=== PATIENT | female | born 1935 | race Caucasian/White ===

== ENCOUNTER 2019-06-29 10:46 | Inpatient (IN) | payer MEDICARE, OTHER ==
[~2019-06-29] VITALS: Ht 152.4 cm; Wt 54.4 kg
--- NOTE | 2019-06-29 10:56 | NUR ---
BIB CAREGIVER FOR C/O BEING MORE ALTERED THAN USUAL,"SHES NOT EATING AND NOT TAKING HER MEDS FOR 2 DAYS", AO x 1, TO ER BED 10, HOOKED TO MONITOR, CHANGED TO GOWN, PROVIDED W WARM BLANKET, AWAITING MD VICTORIA.
--- NOTE | 2019-06-29 10:58 | NUR ---
DR ROBLEDO AT BEDSIDE
[2019-06-29] MEDS ORDERED: LORAZEPAM INJ 2 MG/ML VIAL IV ONE (11:00)
[2019-06-29] MEDS ORDERED: IV NS 0.9% 1,000 ML BAG IV ONE (11:00)
[2019-06-29] MEDS ORDERED: LORAZEPAM INJ 2 MG/ML VIAL ONE (11:15)
[2019-06-29 11:20] LABS: BASOPHILS % (AUTO) 0.3 % (0.0-2.0); EOSINOPHILS % (AUTO) 0.8 % (0.0-6.0); HEMATOCRIT 34 % (33-45); HEMOGLOBIN 11.1 g/dL (11.5-14.8); LYMPHOCYTES # (AUTO) 1.1 /CMM (0.8-4.8); LYMPHOCYTES % (AUTO) 12.1 % (20.0-44.0); MEAN CORPUSCULAR HGB CONC 33 g/dl (31.0-36.0); MEAN CORPUSCULAR VOLUME 104 fL (82-100); MONOCYTES # (AUTO) 0.6 /CMM (0.1-1.30); MONOCYTES % (AUTO) 7.2 % (2.0-12.0); NEUTROPHILS # (AUTO) 7.1 /CMM (1.8-8.9); NEUTROPHILS % (AUTO) 79.6 % (43.0-81.0); PLATELET COUNT (AUTO) 201 /CMM (150-450); RED BLOOD CELL COUNT(AUTO) 3.23 MIL/uL (4.0-5.2); WHITE BLOOD COUNT (AUTO) 8.9 K/uL (4.3-11.0)
[2019-06-29] MEDS ORDERED: DOCU100C36 PO (11:26)
[2019-06-29] MEDS ORDERED: CLON1TAB12 PO (11:26)
[2019-06-29] MEDS ORDERED: SIMV10TA6 PO (11:26)
[2019-06-29] MEDS ORDERED: FOLI1TAB16 PO (11:26)
[2019-06-29] MEDS ORDERED: SEVE800T8 PO (11:26)
[2019-06-29] MEDS ORDERED: NITR100C11 PO (11:26)
[2019-06-29] MEDS ORDERED: POLY17PO4 PO (11:26)
[2019-06-29] MEDS ORDERED: LOPE-156 PO (11:26)
[2019-06-29] MEDS ORDERED: FERR325T23 PO (11:26)
[2019-06-29] MEDS ORDERED: BUPR300T52 PO (11:26)
[2019-06-29] MEDS ORDERED: OMEP20CA11 PO (11:26)
[2019-06-29] MEDS ORDERED: TYL2T PO (11:26)
[2019-06-29] MEDS ORDERED: DIVA500T2 PO (11:26)
[2019-06-29] MEDS ORDERED: SENN-18 PO (11:26)
[2019-06-29] MEDS ORDERED: LEVO50TA8 PO (11:26)
[2019-06-29] MEDS ORDERED: OLAN2.5T3 PO (11:26)
[2019-06-29 11:29] LABS: CALCIUM, SERUM 9.2 mg/dL (8.5-10.1); CARBON DIOXIDE 28 mmol/L (21-32); CHLORIDE 101 mmol/L (98-107); CREATININE 3.9 mg/dL (0.6-1.3); GLUCOSE 95 mg/dL (74-106); POTASSIUM 3.1 mmol/L (3.5-5.1); SODIUM SERUM 141 mmol/L (136-145); UREA NITROGEN, BLOOD 43 mg/dL (7-18)
--- NOTE | 2019-06-29 11:33 | NUR ---
CALLED FOR TELE BED, TURNED IN MOVE SHEET
[2019-06-29 11:46] LABS: ALANINE AMINOTRANSFERASE 15 U/L (12-78); ALBUMIN 2.7 g/dL (3.4-5.0); ALKALINE PHOSPHATASE 121 U/L (46-116); ASPARTATE AMINOTRANSFERASE 18 U/L (15-37); BILIRUBIN,DIRECT 0.2 mg/dL (0.0-0.2); BILIRUBIN,TOTAL 0.5 mg/dL (0.2-1.0); TOTAL PROTEIN, SERUM 7.5 g/dL (6.4-8.2)
[2019-06-29 11:50] LABS: BILIRUBIN,URINE Negative (NEGATIVE); BLOOD, URINE Moderate Ery/uL (NEGATIVE); COLOR,URINE Yellow (YELLOW); KETONES,URINE Trace (NEGATIVE); LEUKOCYTE ESTERASE ,URINE Large (NEGATIVE); NITRITE, URINE Negative (NEGATIVE); PH,URINE 7.5 (5.0-8.0); PROTEIN,URINE 100 mg/dl (NEGATIVE); UGLUCOSE Negative (NEGATIVE); UROBILINOGEN,URINE 0.2 EU/dL (0.2)
[2019-06-29 11:52] LABS: APPEARANCE,URINE CLOUDY (CLEAR)
[2019-06-29 11:53] LABS: BACTERIA,URINE 1+ /HPF (None Seen); SQUAMOUS EPITHELIAL CELL,UR Moderate /HPF (None Seen); WBC,URINE 21-50 /HPF (0-3)
--- NOTE | 2019-06-29 12:02 | NUR ---
TELE BED 323-2
--- NOTE | 2019-06-29 12:17 | NUR ---
REPORT GIVEN TO COMFORT MCMILLAN OF TELE UNIT
--- NOTE | 2019-06-29 12:20 | NUR ---
RN NOTES RECEIVED REPORT FROM DEYANIRA CAMPBELL. WAITING FOR PATIENT TO ARRIVE UNIT
--- NOTE | 2019-06-29 12:45 | NUR ---
PAGED ANDMARY ALICEN
[2019-06-29] MEDS ORDERED: CEFTRIAXONE 1GM BAG (ER ONLY) 1 GM/50 ML PIGGYBACK IV ONE (13:00)
[2019-06-29] MEDS ORDERED: CEFTRIAXONE 1GM BAG (ER ONLY) 50 ML IV ONE (13:18)
[2019-06-29 13:20] VITALS: BP 140/63
--- NOTE | 2019-06-29 13:20 | NUR ---
TOOLROOM MACHINIST NOTES PATIENT CAME IN VIA GURNEY. ON ROOM AIR, SO DIFF BREATHING. ON TELE MONITOR, SR. LAST HD 06/27. HAS RIGHT HIP AND RIGHT SHOULDER BRUISE. PATIENT STATED SHE HAD A FALL ESTIMATION A MONTH AGO. HAS RIGHT FA#20 NS 100ML/HR. LEFT UA FISTULA, REDNESS NOTED. TOOK PICTURES OF FISTULA AND BRUISES. NO COMPLAINS OF ANY PAIN NOR SOB. BED LOCKED AND IN LOWEST POSITION. CALL LIGHT WITHIN REACH. BELONGINGS LIST CHECKED. WILL CONT TO MONITOR
[2019-06-29] MEDS ORDERED: POLYETHYLENE GLYCOL 3350 17 GM POWD.PACK PO PRN (14:00)
[2019-06-29] MEDS ORDERED: ACETAMINOPHEN 325 MG TABLET PO PRN (14:00)
[2019-06-29] MEDS ORDERED: MAG HYDROX/AL HYDROX/SIMETH 30 ML UDC PO PRN (14:00)
[2019-06-29] MEDS ORDERED: Z GUARD REMEDY 2 OZ OINT TP PRN (14:00)
[2019-06-29] MEDS ORDERED: MAGNESIUM HYDROXIDE 30 ML UDC PO PRN (14:00)
[2019-06-29] MEDS ORDERED: ONDANSETRON HCL/PF 4 MG/2 ML VIAL IVP PRN (14:00)
[2019-06-29] MEDS ORDERED: HYDROCODONE/APAP 5/325MG 1 EACH TABLET PO PRN (14:00)
[2019-06-29] MEDS ORDERED: IV NS 0.9% 1,000 ML IV SCH (14:00)
[2019-06-29] MEDS ORDERED: SENNOSIDES 8.6 MG TABLET PO PRN (14:00)
[2019-06-29] MEDS ORDERED: LOPERAMIDE HCL (2 MG CAP) 2 MG CAPSULE PO PRN (14:30)
[2019-06-29 16:00] VITALS: BP 156/63
[2019-06-29] MEDS: DIVALPROEX SODIUM 500 MG TABLET.DR PO SCH (17:07)
[2019-06-29] MEDS: DOCUSATE SODIUM 100 MG CAPSULE PO SCH (17:07)
[2019-06-29] MEDS: SEVELAMER CARBONATE 800 MG TABLET PO SCH (17:07)
--- NOTE | 2019-06-29 17:38 | NUR ---
RN NOTES DR FARLEY AT BEDSIDE, FISTULA WAS NOTED WITH REDNESS. PATIENT AWARE ABOUT THE CONDITION. PATIENT ALERT AND ORIENTED X4. Addendum: 06/29/19 at 1740 by TERESA BRENNER RN RENAL DIET ORDERED PER
--- NOTE | 2019-06-29 19:03 | NUR ---
RN CLOSING NOTES PATIENT AWAKE, VERY ALERT AND AGITATED. ON TELE, SR. WOUND DOCUMENTED. RIGHT FA #20 NS RUNNING AT 100ML/HR. ON ROOM AIR. DIET CHANGED TO RENAL FROM NPO. WILL ENDORSE TO NOC SHIFT FOR RED
[2019-06-29 20:00] VITALS: BP 140/65
--- NOTE | 2019-06-29 20:00 | NUR ---
CHILDHOOD TEACHER NURSE RECEIVED PTS IN BED AWAKE ALERT AND RESPONSIVE ABLE TO MAKE NEEDS KNOWN , ON TELE SR ON THE MONITOR SATING 96%R/A ,NO SOB NO DISTRESS NOTED,PTS ON LEFT UA AV FISTULA FOR HD ACCESS , WITH BRUIT AND THRILL ,RIGHT FA G#20 INTACT AND PATENT WITH IVF NS AT 100 CC/HR INFUSING WELL . V/S STABLE AFEBRILE , ALL NEEDS ATTENDED TOO CALL LIGHT WITHIN REACH , KEPT PTS CLEAN DRY AND COMFORTABLE.WILL CONTINUE TO MONITOR PTS.
[2019-06-29] MEDS: clonazePAM 1 MG TABLET PO SCH (21:07)
[2019-06-29] MEDS: SIMVASTATIN 10 MG TABLET PO SCH (21:10)
[2019-06-30] VITALS: BP 115/50
[2019-06-30 04:00] VITALS: BP 115/50
--- NOTE | 2019-06-30 06:45 | NUR ---
teleprinter notes pts in bed awake alert and responsive , on r/a no sob no distress noted , no cinthia noted at this time .for hd today , will endorse to rn day shift for continuity of care.
[2019-06-30 07:18] LABS: BASOPHILS % (AUTO) 0.3 % (0.0-2.0); EOSINOPHILS % (AUTO) 1.3 % (0.0-6.0); HEMATOCRIT 29 % (33-45); HEMOGLOBIN 9.8 g/dL (11.5-14.8); LYMPHOCYTES # (AUTO) 1.2 /CMM (0.8-4.8); MEAN CORPUSCULAR HGB CONC 34 g/dl (31.0-36.0); MEAN CORPUSCULAR VOLUME 103 fL (82-100); MONOCYTES # (AUTO) 0.6 /CMM (0.1-1.30); NEUTROPHILS # (AUTO) 7.4 /CMM (1.8-8.9); NEUTROPHILS % (AUTO) 79.4 % (43.0-81.0); PLATELET COUNT (AUTO) 202 /CMM (150-450); RED BLOOD CELL COUNT(AUTO) 2.83 MIL/uL (4.0-5.2); WHITE BLOOD COUNT (AUTO) 9.3 K/uL (4.3-11.0)
--- NOTE | 2019-06-30 07:20 | NUR ---
EXHIBITION CARVER OPENING NOTES RECEIVED PATIENT RESTING COMFORTABLY IN BED. DOES NOT SHOW ANY S/SX OF DISTRESS OR SOB ON RA. RFA 20G SALINE LOCK, SHE IS ON A RENAL STANDARD DIET. SAFETY MEASURES HAVE BEEN IMPLEMENTED, SIDE RAILS UP X2, BED IN LOWEST AND LOCKED POSITION, CALL LIGHT WITHIN REACH, WILL CONTINUE TO MONITOR FOR ANY CHANGES.
[2019-06-30 07:45] LABS: CALCIUM, SERUM 8.5 mg/dL (8.5-10.1); CARBON DIOXIDE 26 mmol/L (21-32); CHLORIDE 107 mmol/L (98-107); CREATININE 4.7 mg/dL (0.6-1.3); GLUCOSE 90 mg/dL (74-106); PHOSPHORUS 3.4 mg/dL (2.5-4.9); SODIUM SERUM 145 mmol/L (136-145); UREA NITROGEN, BLOOD 53 mg/dL (7-18)
[2019-06-30 07:48] LABS: CHOLESTEROL 194 mg/dL (<200); HDL CHOLESTEROL 39 mg/dL (40-60); LDL 113 mg/dL (0-99); TRIGLYCERIDES 182 mg/dL (30-150)
[2019-06-30 08:00] VITALS: BP 144/63
[2019-06-30] MEDS: LEVOTHYROXINE SODIUM 25 MCG TABLET PO SCH (08:08)
[2019-06-30] MEDS: PANTOPRAZOLE 40 MG TABLET.DR PO SCH (08:08)
[2019-06-30] MEDS: SEVELAMER CARBONATE 800 MG TABLET PO SCH ×3 (08:58→17:01)
[2019-06-30] MEDS: DIVALPROEX SODIUM 500 MG TABLET.DR PO SCH ×2 (08:59→17:01)
[2019-06-30] MEDS: DOCUSATE SODIUM 100 MG CAPSULE PO SCH ×2 (08:59→17:01)
[2019-06-30] MEDS: BUPROPION XL 150 MG TAB.ER.24 PO SCH (08:59)
[2019-06-30] MEDS: OLANZAPINE 2.5 MG TABLET PO SCH (09:00)
[2019-06-30] MEDS: FERROUS SULFATE (325 MG) 325 MG/TAB TABLET PO SCH (09:00)
[2019-06-30] MEDS: FOLIC ACID 1 MG TABLET PO SCH (09:00)
[2019-06-30] MEDS: CEFTRIAXONE 1 G in IV D5W 50 ML IV SCH (14:52)
--- NOTE | 2019-06-30 14:55 | NUR ---
RN NOTES PATIENT IS POST-HEMODIALYSIS, 1.3L OF FLUID REMOVED. VITALS SIGNS ARE BP: 129/55, HR: 82, RR: 16, AND TEMP: 98.5 F. PT HAS TOLERATED HD WELL, RESTING IN BED. 13:00 DOSE OF CEFTRIAXONE WAS GIVEN 14:50 BECAUSE OF HD. IV SITE ON RFA HAS BEEN REMOVED BECAUSE IT BECAME INFILTRATED WHEN TRYING TO FLUSH THE LINE. PT NOW HAS A 22G SALINE LOCK ON RIGHT WRIST. WILL CONTINUE TO MONITOR. BED IS IN LOWEST AND LOCKED POSITION, SIDE RAILS UP X2, CALL LIGHT WITHIN REACH. WILL CONTINUE TO MONITOR FOR ANY CHANGES.
--- NOTE | 2019-06-30 19:31 | NUR ---
RN CLOSING NOTES PATIENT IS RESTING COMFORTABLY IN BED, DOES IN SHOW ANY SIGNS OF DISTRESS. PT HAS A 22 G ON THE RIGHT WRIST, PATENT AND INTACT, WITH A LINDA AV SHUNT. PATIENT IS ON RA AND DOES NOT SHOW SIGNS OF RESPIRATORY DISTRESS OR SOB. SAFETY MEASURES HAVE BEEN IMPLEMENTED, SIDE RAILS UP X2, CALL LIGHT WITHIN REACH. PATIENT HAS BEEN ENDORSED TO NIGHTSHIFT NURSE
--- NOTE | 2019-06-30 19:56 | NUR ---
MS MCMILLAN OPENING NOTES: RECEIVED PT ON ROOM AIR AND IS TOLERATING WELL. PT IS A/OX4 BUT HAS SOME UNCLEAR SPEECH. PT HAS R WRIST #22G AND IS PATENT AND INTACT. CURRENTLY H/L. NO SOB NOTED. NO S/S OF DISTRESS. BED ALARM ACTIVATED FOR SAFETY MEASURES. BED KEPT IN LOW, LOCKED POSITION, AND SIDE RAILS X 2UP. WILL CONTINUE TO MONITOR PT. Addendum: 06/30/19 at 1957 by GLADIS WATSON RN NOTED PT TO BE FORGETFUL. WILL REORIENT PRN. PT ALSO HAS L UPPER ARM FISUTAL AND IS KEPT CLEAN AND DRY.
[2019-06-30 20:26] VITALS: BP 136/62
[2019-06-30] MEDS: clonazePAM 1 MG TABLET PO SCH (21:00)
[2019-06-30] MEDS: SIMVASTATIN 10 MG TABLET PO SCH (21:00)
[2019-07-01 04:00] VITALS: BP 121/63
[2019-07-01 07:23] LABS: BASOPHILS % (AUTO) 0.2 % (0.0-2.0); EOSINOPHILS % (AUTO) 1.2 % (0.0-6.0); HEMATOCRIT 29 % (33-45); HEMOGLOBIN 9.9 g/dL (11.5-14.8); LYMPHOCYTES # (AUTO) 1.2 /CMM (0.8-4.8); LYMPHOCYTES % (AUTO) 14.5 % (20.0-44.0); MEAN CORPUSCULAR HGB CONC 34 g/dl (31.0-36.0); MEAN CORPUSCULAR VOLUME 103 fL (82-100); MONOCYTES # (AUTO) 0.4 /CMM (0.1-1.30); MONOCYTES % (AUTO) 5.4 % (2.0-12.0); NEUTROPHILS # (AUTO) 6.5 /CMM (1.8-8.9); NEUTROPHILS % (AUTO) 78.7 % (43.0-81.0); PLATELET COUNT (AUTO) 201 /CMM (150-450); RED BLOOD CELL COUNT(AUTO) 2.85 MIL/uL (4.0-5.2); WHITE BLOOD COUNT (AUTO) 8.3 K/uL (4.3-11.0)
[2019-07-01 07:38] LABS: ALANINE AMINOTRANSFERASE 10 U/L (12-78); ALBUMIN 2.3 g/dL (3.4-5.0); ALKALINE PHOSPHATASE 94 U/L (46-116); ASPARTATE AMINOTRANSFERASE 14 U/L (15-37); BILIRUBIN,TOTAL 0.2 mg/dL (0.2-1.0); CALCIUM, SERUM 8.5 mg/dL (8.5-10.1); CARBON DIOXIDE 29 mmol/L (21-32); CHLORIDE 103 mmol/L (98-107); CREATININE 4.3 mg/dL (0.6-1.3); GLUCOSE 89 mg/dL (74-106); PHOSPHORUS 3.3 mg/dL (2.5-4.9); POTASSIUM 3.1 mmol/L (3.5-5.1); SODIUM SERUM 142 mmol/L (136-145); TOTAL PROTEIN, SERUM 6.5 g/dL (6.4-8.2); UREA NITROGEN, BLOOD 41 mg/dL (7-18)
[2019-07-01 08:00] VITALS: BP 130/58
[2019-07-01] MEDS: DIVALPROEX SODIUM 500 MG TABLET.DR PO SCH ×2 (10:36→17:27)
[2019-07-01] MEDS: DOCUSATE SODIUM 100 MG CAPSULE PO SCH ×2 (10:36→17:28)
[2019-07-01] MEDS: OLANZAPINE 2.5 MG TABLET PO SCH (10:36)
[2019-07-01] MEDS: SEVELAMER CARBONATE 800 MG TABLET PO SCH ×3 (10:36→17:27)
[2019-07-01] MEDS: FOLIC ACID 1 MG TABLET PO SCH (10:37)
[2019-07-01] MEDS: FERROUS SULFATE (325 MG) 325 MG/TAB TABLET PO SCH (10:37)
[2019-07-01] MEDS: BUPROPION XL 150 MG TAB.ER.24 PO SCH (10:37)
[2019-07-01] MEDS: LEVOTHYROXINE SODIUM 25 MCG TABLET PO SCH (10:37)
[2019-07-01] MEDS: PANTOPRAZOLE 40 MG TABLET.DR PO SCH (10:37)
[2019-07-01] MEDS: CEFTRIAXONE 1 G in IV D5W 50 ML IV SCH (13:16)
[2019-07-01 13:26] LABS: GAMMA GLUTAMYL TRANSFERASE 7 U/L (5-85)
[2019-07-01 16:00] VITALS: BP 137/65
--- NOTE | 2019-07-01 19:30 | NUR ---
MS/RN OPENING NOTES PT RECEIVED AWAKE, WATCHING TV. PT IS A/OX2 (NAME AND PLACE). ON ROOM AIR, BREATHING EVEN AND UNLABORED. DENIES SOB AND PAIN AT THIS TIME. HOB ELEVATED. IV TO RIGHT WRIST PATENT AND INTACT. LINDA AV SHUNT WITH +BRUITT/THRILL. NO BLEEDING NOTED. BED IN LOW/LOCKED POSITION WITH CALL LIGHT IN REACH. BILAT. UPPER SIDE RAILS IN PLACE. WILL CONTINUE TO MONITOR
[2019-07-01 19:50] VITALS: BP 138/51
[2019-07-01 19:56] VITALS: BP 138/51
[2019-07-01] MEDS: SIMVASTATIN 10 MG TABLET PO SCH (21:19)
[2019-07-01] MEDS: clonazePAM 1 MG TABLET PO SCH (21:19)
--- NOTE | 2019-07-02 01:53 | NUR ---
MS/RN NOTES PT PULLED OUT IV. INSERTED NEW IV TO RFA #22, GOOD BLOOD RETURN NOTED AND FLUSHES WELL. ENCOURAGED PT NOT TO PULL OUT NEW IV, VERBALIZED UNDERSTANDING.
[2019-07-02 04:00] VITALS: BP 130/60
[2019-07-02 04:45] VITALS: BP 130/60
--- NOTE | 2019-07-02 06:35 | NUR ---
MS/RN CLOSING NOTES PT AWAKE WATCHING TV. REMAINS ON ROOM AIR, BREATHING EVEN AND UNLABORED. DENIES SOB AND PAIN AT THIS TIME. IV TO RFA PATENT AND INTACT. LINDA AV SHUNT WITH +BRUITT/THRILL. ANTICIPATING HEMODIALYSIS TODAY. NO SIGNIFICANT CHANGES OVERNIGHT. ALL NEEDS MET AND ANTICIPATED. TURNED/REPOSITIONED Q2H. HEELS OFFLOADED. HOB ELEVATED AND SIDE RAILS UPX3. BED IN LOW/LOCKED POSITION WITH CALL LIGHT IN REACH. ASPIRATION PRECAUTIONS IMPLEMENTED. ISOLATION PRECAUTIONS IMPLEMENTED. WILL ENDORSE TO DAY SHIFT RN RED.
[2019-07-02 07:13] LABS: BASOPHILS % (AUTO) 0.3 % (0.0-2.0); EOSINOPHILS % (AUTO) 1.4 % (0.0-6.0); HEMATOCRIT 28 % (33-45); HEMOGLOBIN 9.5 g/dL (11.5-14.8); LYMPHOCYTES # (AUTO) 1.1 /CMM (0.8-4.8); MEAN CORPUSCULAR HGB CONC 34 g/dl (31.0-36.0); MEAN CORPUSCULAR VOLUME 103 fL (82-100); MONOCYTES # (AUTO) 0.4 /CMM (0.1-1.30); MONOCYTES % (AUTO) 6.2 % (2.0-12.0); NEUTROPHILS # (AUTO) 5.2 /CMM (1.8-8.9); NEUTROPHILS % (AUTO) 76.1 % (43.0-81.0); PLATELET COUNT (AUTO) 207 /CMM (150-450); RED BLOOD CELL COUNT(AUTO) 2.72 MIL/uL (4.0-5.2); WHITE BLOOD COUNT (AUTO) 6.8 K/uL (4.3-11.0)
[2019-07-02 07:17] LABS: CALCIUM, SERUM 8.5 mg/dL (8.5-10.1); CARBON DIOXIDE 27 mmol/L (21-32); CHLORIDE 106 mmol/L (98-107); CREATININE 5.2 mg/dL (0.6-1.3); GLUCOSE 85 mg/dL (74-106); POTASSIUM 3.2 mmol/L (3.5-5.1); SODIUM SERUM 144 mmol/L (136-145); UREA NITROGEN, BLOOD 52 mg/dL (7-18)
--- NOTE | 2019-07-02 07:50 | NUR ---
m/s administrative specialist: md visit seen by dr. mccurdy with new orders. orders acknowledged. pt for hd tx today. md aware of labs. will continue to monitor.
[2019-07-02 08:23] VITALS: BP 116/60
[2019-07-02] MEDS ORDERED: FEE PK DOSING 1 MIN EA MC ONE ×2 (08:24→21:11)
[2019-07-02] MEDS: OLANZAPINE 2.5 MG TABLET PO SCH (08:41)
[2019-07-02] MEDS: SEVELAMER CARBONATE 800 MG TABLET PO SCH ×3 (08:41→17:37)
[2019-07-02] MEDS: LEVOTHYROXINE SODIUM 25 MCG TABLET PO SCH (08:41)
[2019-07-02] MEDS: PANTOPRAZOLE 40 MG TABLET.DR PO SCH (08:41)
[2019-07-02] MEDS: DOCUSATE SODIUM 100 MG CAPSULE PO SCH ×2 (08:41→17:37)
[2019-07-02] MEDS: FERROUS SULFATE (325 MG) 325 MG/TAB TABLET PO SCH (08:41)
[2019-07-02] MEDS: DIVALPROEX SODIUM 500 MG TABLET.DR PO SCH ×2 (08:41→17:37)
[2019-07-02] MEDS: BUPROPION XL 150 MG TAB.ER.24 PO SCH (08:41)
[2019-07-02] MEDS: FOLIC ACID 1 MG TABLET PO SCH (08:41)
--- NOTE | 2019-07-02 09:35 | NUR ---
m/s stewardess supervisor: notes hd tx started by hd nurse at this time. will continue to monitor.
[2019-07-02] MEDS ORDERED: GENTAMICIN 300 MG in IV D5W 100 ML IV ONE (10:00)
[2019-07-02] MEDS ORDERED: GENTAMICIN 100 MG in IV D5W 100 ML IV ONE (11:00)
--- NOTE | 2019-07-02 11:10 | NUR ---
m/s vineyard supervisor: md visit seen and examined by dr. garcia at this time.
[2019-07-02 12:00] VITALS: BP 110/50
--- NOTE | 2019-07-02 12:00 | NUR ---
m/s senior vice president and chief information officer: notes hd completed with 1000 ml removed, angela. well. vss. will continue to monitor.
--- NOTE | 2019-07-02 13:00 | NUR ---
m/s patient care representative: notes post 1 hour of hd tx without a/r noted. pt resting comfortable. reality orientation provided prn. will continue to monitor.
--- NOTE | 2019-07-02 15:00 | NUR ---
m/s international first officer: notes resting comfortable in bed with no distress noted. will monitor.
[2019-07-02 17:19] VITALS: BP 117/52
--- NOTE | 2019-07-02 18:30 | NUR ---
m/s bmet: notes pt still having dinner at this time with hob elevated. needs attended. instructed to call for assistance. no apparent distress noted. will continue to monitor.
--- NOTE | 2019-07-02 19:15 | NUR ---
m/s management associate: notes bedside report given to cordell (rn) for continuity of care. call light within reach.
[2019-07-02 20:00] VITALS: BP 118/70
--- NOTE | 2019-07-02 20:00 | NUR ---
MS/RN OPENING NOTES PT RECEIVED AWAKE, WATCHING TV. PT IS A/OX. ON ROOM AIR, BREATHING EVEN AND UNLABORED. DENIES SOB AND PAIN AT THIS TIME. HOB ELEVATED. IV TO RIGHT FOREARM PATENT AND INTACT. LINDA AV SHUNT WITH +BRUIT/THRILL. NO BLEEDING NOTED. BED IN LOW/LOCKED POSITION WITH CALL LIGHT IN REACH. UPPER SIDE RAILSX2 IN PLACE. WILL CONTINUE TO MONITOR PATIENT CLOSELY.
[2019-07-02] MEDS ORDERED: VANCOMYCIN 1 GM in IV D5W 250 ML IV ONE (21:30)
[2019-07-02] MEDS: clonazePAM 1 MG TABLET PO SCH ×2 (21:48→22:00)
[2019-07-02] MEDS: SIMVASTATIN 10 MG TABLET PO SCH ×2 (21:49→22:00)
--- NOTE | 2019-07-02 22:30 | NUR ---
RN NOTES BLADDER SCAN HAS BEEN DONE AND URINE IS 150ML. WILL RECHECK BLADDER IN 6HR. CALLED RADIOLOGY AND HAS BEEN TOLD US BLADDER WILL BE DONE IN AM DUE TO US BLADDER ORDER IS RUTIN.WILL CONTINUE TO MONITOR PATIENT.
[2019-07-03 04:00] VITALS: BP 128/54
--- NOTE | 2019-07-03 05:00 | NUR ---
RN NOTES BLADDER SCAN HAS BEEN DONE AND URINE IS 303ML. STRAIGHT CATHETER USED TO DRAIN 300ML OF LIGHT YELLOW WITH NO SEDIMENTS URINE PER MD ORDER.WILL CONTINUE TO MONITOR PATIENT.
[2019-07-03] MEDS ORDERED: VANCOMYCIN 500 MG in IV D5W 100 ML IV PRN (06:00)
[2019-07-03 07:36] LABS: CALCIUM, SERUM 8.5 mg/dL (8.5-10.1); CARBON DIOXIDE 28 mmol/L (21-32); CHLORIDE 103 mmol/L (98-107); CREATININE 4.2 mg/dL (0.6-1.3); GLUCOSE 83 mg/dL (74-106); SODIUM SERUM 142 mmol/L (136-145); UREA NITROGEN, BLOOD 38 mg/dL (7-18)
[2019-07-03 07:41] LABS: BASOPHILS % (AUTO) 0.4 % (0.0-2.0); EOSINOPHILS % (AUTO) 2.1 % (0.0-6.0); HEMATOCRIT 29 % (33-45); HEMOGLOBIN 9.9 g/dL (11.5-14.8); LYMPHOCYTES # (AUTO) 1.7 /CMM (0.8-4.8); LYMPHOCYTES % (AUTO) 23.8 % (20.0-44.0); MEAN CORPUSCULAR HGB CONC 34 g/dl (31.0-36.0); MEAN CORPUSCULAR VOLUME 103 fL (82-100); MONOCYTES # (AUTO) 0.4 /CMM (0.1-1.30); MONOCYTES % (AUTO) 6.2 % (2.0-12.0); NEUTROPHILS # (AUTO) 4.7 /CMM (1.8-8.9); NEUTROPHILS % (AUTO) 67.5 % (43.0-81.0); PLATELET COUNT (AUTO) 231 /CMM (150-450); RED BLOOD CELL COUNT(AUTO) 2.82 MIL/uL (4.0-5.2)
[2019-07-03 08:00] VITALS: BP 126/64
[2019-07-03] MEDS: SEVELAMER CARBONATE 800 MG TABLET PO SCH ×3 (09:15→18:14)
[2019-07-03] MEDS: BUPROPION XL 150 MG TAB.ER.24 PO SCH (09:15)
[2019-07-03] MEDS: OLANZAPINE 2.5 MG TABLET PO SCH (09:15)
[2019-07-03] MEDS: LEVOTHYROXINE SODIUM 25 MCG TABLET PO SCH (09:15)
[2019-07-03] MEDS: PANTOPRAZOLE 40 MG TABLET.DR PO SCH (09:15)
[2019-07-03] MEDS: FERROUS SULFATE (325 MG) 325 MG/TAB TABLET PO SCH (09:15)
[2019-07-03] MEDS: FOLIC ACID 1 MG TABLET PO SCH (09:16)
[2019-07-03] MEDS: DIVALPROEX SODIUM 500 MG TABLET.DR PO SCH ×2 (09:16→18:15)
[2019-07-03] MEDS: DOCUSATE SODIUM 100 MG CAPSULE PO SCH ×2 (09:16→18:15)
[2019-07-03] MEDS ORDERED: RXGEN XX (11:42)
[2019-07-03] MEDS ORDERED: GENTAMICIN 80 MG in IV D5W 50 ML IV PRN (13:00)
[2019-07-03 16:00] VITALS: BP 114/56
[2019-07-03 17:00] VITALS: BP 114/56
[2019-07-03] MEDS: LACTOBACILLUS RHAMNOSUS GG 1 EACH CAP.SPRINK PO SCH (18:14)
--- NOTE | 2019-07-03 19:15 | NUR ---
MS RN NOTE RECEIVED PT IN STABLE CONDITION A&O 3 WITH TIMES OF CONFUSION. CURRENTLY IN BED WATCHING TV. NO SIGNS OF SOB OR DISTRESS, NO INDICATIONS OF PAIN. IV IN RFA IN PLACE. ALL CURRENT NEEDS ATTENDED TO. BED LOW, LOCKED, UPPER RAILS UP, AND CALL LIGHT WITHIN REACH. WILL CONT. TO MONITOR.
[2019-07-03 20:00] VITALS: BP 121/68
--- NOTE | 2019-07-03 21:00 | NUR ---
MS RN NOTE PT NOTED WITH BED WET WITH URINE, BEDDING CHANGED, WILL SCAN BLADDER AT 0100. WILL CONT. TO MONITOR.
[2019-07-03] MEDS: clonazePAM 1 MG TABLET PO SCH (21:19)
[2019-07-03] MEDS: SIMVASTATIN 10 MG TABLET PO SCH (21:20)
--- NOTE | 2019-07-03 21:20 | NUR ---
MS RN NOTE SIMVASTATIN MANUALLY ADMINISTERED, WHEN SCANNED "UNKNOWN NDC NUMBER" POPS UP.
[2019-07-03 21:33] VITALS: BP 121/68
--- NOTE | 2019-07-04 00:52 | NUR ---
MS RN NOTE PT REFUSED BLADDER TO BE SCANNED. RISKS AND BENEFITS MADE AWARE WITH VERBALIZATION OF UNDERSTANDING.
[2019-07-04 04:00] VITALS: BP 138/71
--- NOTE | 2019-07-04 05:00 | NUR ---
MS RN NOTE BLADDER SCAN DONE, WITH 155 ML RESIDUAL. WILL CONT. TO MONITOR.
[2019-07-04 05:38] VITALS: BP 138/71
--- NOTE | 2019-07-04 06:18 | NUR ---
MS RN NOTE PT IN STABLE CONDITION A&O X3 WITH TIMES OF CONFUSION. CURRENTLY IN BED WATCHING TV. NO SIGNS OF SOB OR DISTRESS, NO INDICATIONS OF PAIN. IV IN RFA IN PLACE. ALL CURRENT NEEDS ATTENDED TO. BED LOW, LOCKED, UPPER RAILS UP, AND CALL LIGHT WITHIN REACH. WILL CONT. TO MONITOR AND ENDORSE TO NEXT SHIFT FOR RED.
[2019-07-04 06:36] LABS: CALCIUM, SERUM 8.6 mg/dL (8.5-10.1); CARBON DIOXIDE 29 mmol/L (21-32); CHLORIDE 104 mmol/L (98-107); CREATININE 5.3 mg/dL (0.6-1.3); GENTAMICIN,RANDOM 1.9 ug/ml (4.0-8.0); GLUCOSE 94 mg/dL (74-106); POTASSIUM 3.9 mmol/L (3.5-5.1); SODIUM SERUM 143 mmol/L (136-145); UREA NITROGEN, BLOOD 52 mg/dL (7-18)
--- NOTE | 2019-07-04 08:00 | NUR ---
MS RN RECEIVED ON BED,AWAKE, DOING HD AT THIS TIME, SHERRY NT IS ALERT X 4,NOT IN ANY FORM PF DISTRESS, TOLERATING HD WELL.
[2019-07-04 08:10] LABS: THYROID STIMULATING HORMONE 2.633 uIU/mL (0.358-3.74)
--- NOTE | 2019-07-04 09:50 | NUR ---
MS MCMILLAN BREAKFAST SERVED DUE MEDS GIVEN,TOLERATED WELL.
[2019-07-04] MEDS: DIVALPROEX SODIUM 500 MG TABLET.DR PO SCH ×2 (10:03→17:24)
[2019-07-04] MEDS: OLANZAPINE 2.5 MG TABLET PO SCH (10:03)
[2019-07-04] MEDS: LACTOBACILLUS RHAMNOSUS GG 1 EACH CAP.SPRINK PO SCH ×2 (10:03→17:24)
[2019-07-04] MEDS: SEVELAMER CARBONATE 800 MG TABLET PO SCH ×3 (10:03→17:24)
[2019-07-04] MEDS: DOCUSATE SODIUM 100 MG CAPSULE PO SCH ×2 (10:03→17:24)
[2019-07-04] MEDS: FERROUS SULFATE (325 MG) 325 MG/TAB TABLET PO SCH (10:03)
[2019-07-04] MEDS: BUPROPION XL 150 MG TAB.ER.24 PO SCH (10:03)
[2019-07-04] MEDS: FOLIC ACID 1 MG TABLET PO SCH (10:03)
[2019-07-04] MEDS: PANTOPRAZOLE 40 MG TABLET.DR PO SCH (10:18)
[2019-07-04] MEDS: LEVOTHYROXINE SODIUM 25 MCG TABLET PO SCH (10:18)
--- NOTE | 2019-07-04 11:00 | NUR ---
MS DEYANIRA HD DONE W/ 1000ML OUTPUT.
--- NOTE | 2019-07-04 12:00 | NUR ---
MS RN DUE MEDS GIVEN,TOLERATED WELL.
[2019-07-04 16:00] VITALS: BP 130/72
--- NOTE | 2019-07-04 16:24 | NUR ---
MS RN ON BED, SLEEPING,NO DISTRESS,NOTED.
[2019-07-04 17:00] VITALS: BP 130/72
[2019-07-04] MEDS ORDERED: GENTAMICIN 100 MG in IV D5W 100 ML IV ONE (17:30)
--- NOTE | 2019-07-04 18:00 | NUR ---
MS RN PATIENT STILL REFUSING FOR DISCHARGE PICTURE TAKING, SKIN IS INTACT, ONLY ACCESS HAS SOME REDNESS ON IT.
--- NOTE | 2019-07-04 18:20 | NUR ---
MS RN PATIENT TRANSFERRED TO [facility] VIA AMBULANCE, NO DISTRESS NOTED.
== END 2019-07-04 18:30 | DRG 689 ==
LOC: ER 10:46 → TELE1 11:48 → MEDSG1 06-30 10:08
PROVIDERS: ADMIT Family Medicine; ATTEND Internal Medicine
PROC: 5A1D70Z Performance of Urinary Filtration, Intermittent, Less than 6 Hours Per Day (ICD-10-PCS; principal; 2019-06-30)
PROC: 5A1D70Z Performance of Urinary Filtration, Intermittent, Less than 6 Hours Per Day (ICD-10-PCS; 2019-07-02)
PROC: 5A1D70Z Performance of Urinary Filtration, Intermittent, Less than 6 Hours Per Day (ICD-10-PCS; 2019-07-04)
DX: N39.0 Urinary tract infection, site not specified (principal); G93.41 Metabolic encephalopathy; N18.6 End stage renal disease; E44.0 Moderate protein-calorie malnutrition; B96.20 Unspecified Escherichia coli [E. coli] as the cause of diseases classified elsewhere; F03.90 Unspecified dementia, unspecified severity, without behavioral disturbance, psychotic disturbance, mood disturbance, and anxiety; D53.9 Nutritional anemia, unspecified; D63.1 Anemia in chronic kidney disease; E87.6 Hypokalemia; Z68.23 Body mass index [BMI] 23.0-23.9, adult; F31.9 Bipolar disorder, unspecified; E03.9 Hypothyroidism, unspecified; E78.5 Hyperlipidemia, unspecified; Z99.2 Dependence on renal dialysis
CPT/HCPCS: 36415; 71045-TC; 80048-TC; 80053-TC; 80061-TC; 80076-TC; 80170-TC; 80202-TC; 81000-TC; 82977-TC; 83605-TC; 83735-TC; 84100-TC; 84439-TC; 84443-TC; 84481; 84484-TC; 85025-TC; 85730-TC; 86706; 87040-TC; 87081-TC; 87086-TC; 87186-TC; 87340; 90935-TC; A6403; G0378; J0696; J1580; J2060; J3370; J7030; J7050; J7060

== ENCOUNTER 2019-07-10 23:01 | Emergency (ER) | payer MEDICARE, OTHER ==
[~2019-07-10] VITALS: Ht 152.4 cm; Wt 54.4 kg
[~2019-07-10 23:01] MED LIST: BUPR300T52 PO; CLON1TAB12 PO; DIVA500T2 PO; DOCU100C36 PO; FERR325T23 PO; FOLI1TAB16 PO; LEVO50TA8 PO; LOPE-195 PO; OLAN2.5T3 PO; OMEP20CA11 PO; POLY17PO4 PO; RXGEN XX; SENN-18 PO; SEVE800T8 PO; SIMV10TA6 PO; TYL2T PO
--- NOTE | 2019-07-10 23:20 | NUR ---
[facility] FROM [facility]. TO ER BED 3. AAOX3, NAD NOTED, BREATHING EVEN AND UNLAABORED. BROUGHT IN D/T PT REFUSING CARE AND BEING AGGRESSIVE WITH STAFF AT THE FACILITY. PT IS ON ATB FOR UTI BUT KEEP REFUSING MEDS AND PULLING IV LINE. AT BEDSIDE FOR EVAL.
[2019-07-11 00:06] LABS: BASOPHILS # (AUTO) 0.1 /CMM (0.0-0.2); BASOPHILS % (AUTO) 0.8 % (0.0-2.0); EOSINOPHILS % (AUTO) 0.9 % (0.0-6.0); HEMATOCRIT 26 % (33-45); HEMOGLOBIN 8.9 g/dL (11.5-14.8); LYMPHOCYTES # (AUTO) 1.6 /CMM (0.8-4.8); LYMPHOCYTES % (AUTO) 22.2 % (20.0-44.0); MEAN CORPUSCULAR HGB CONC 34 g/dl (31.0-36.0); MEAN CORPUSCULAR VOLUME 104 fL (82-100); MONOCYTES # (AUTO) 0.5 /CMM (0.1-1.30); MONOCYTES % (AUTO) 7.5 % (2.0-12.0); NEUTROPHILS % (AUTO) 68.6 % (43.0-81.0); PLATELET COUNT (AUTO) 260 /CMM (150-450); RED BLOOD CELL COUNT(AUTO) 2.51 MIL/uL (4.0-5.2); WHITE BLOOD COUNT (AUTO) 7.3 K/uL (4.3-11.0)
[2019-07-11 00:39] LABS: ALANINE AMINOTRANSFERASE 13 U/L (12-78); ALBUMIN 2.7 g/dL (3.4-5.0); ALKALINE PHOSPHATASE 125 U/L (46-116); ASPARTATE AMINOTRANSFERASE 16 U/L (15-37); BILIRUBIN,DIRECT 0.1 mg/dL (0.0-0.2); BILIRUBIN,TOTAL 0.1 mg/dL (0.2-1.0); CALCIUM, SERUM 8.8 mg/dL (8.5-10.1); CARBON DIOXIDE 30 mmol/L (21-32); CHLORIDE 104 mmol/L (98-107); CREATININE 3.4 mg/dL (0.6-1.3); GLUCOSE 98 mg/dL (74-106); LIPASE 363 U/L (73-393); POTASSIUM 3.8 mmol/L (3.5-5.1); SODIUM SERUM 142 mmol/L (136-145); TOTAL PROTEIN, SERUM 6.3 g/dL (6.4-8.2); UREA NITROGEN, BLOOD 41 mg/dL (7-18)
--- NOTE | 2019-07-11 01:01 | NUR ---
PT IS UNABLE TO PROVIDE URINE AT THIS THIS. IS AWARE. AWARE PT HAS DX OF UTI FROM SNF
--- NOTE | 2019-07-11 01:02 | NUR ---
PT PROVIVDE WITH FOOD AND JUICE
--- NOTE | 2019-07-11 01:04 | NUR ---
PT IS ON HD. LAST HD TUESDAY. HD ACCESS ON LINDA
--- NOTE | 2019-07-11 01:52 | NUR ---
PER ART, COMMUTATOR ASSEMBLER PT UNABLE TO BE ADMITTED TO GPS DUE TO DIALYSIS. SQL SSRS SSIS DEVELOPER NEEDED IN THE AM
--- NOTE | 2019-07-11 03:32 | NUR ---
PT IN BED SLEEPING. NAD NOTED
--- NOTE | 2019-07-11 07:33 | NUR ---
pt endorsed to leonardo gaytan for cinthia
--- NOTE | 2019-07-11 07:41 | NUR ---
DR ONEILL PAGED THRU [facility] FOR DR VALVERDE
--- NOTE | 2019-07-11 08:00 | NUR ---
CALLED AND PSOKE TO MELYSSA AT [facility] FOR BLS TRANSPORT. ETA [id number]. TRIP NUMBER: [id number]
[2019-07-11 08:48] VITALS: BP 110/61
--- NOTE | 2019-07-11 08:50 | NUR ---
patient picked up by private ambulance going to [facility]. Spoke to Paulina lopez RN diet supervisor and report given. In no apparent distress noted.
== END 2019-07-11 08:49 ==
LOC: ER 23:01
DX: R45.1 Restlessness and agitation (principal); F03.90 Unspecified dementia, unspecified severity, without behavioral disturbance, psychotic disturbance, mood disturbance, and anxiety; N18.6 End stage renal disease; N39.0 Urinary tract infection, site not specified; E88.09 Other disorders of plasma-protein metabolism, not elsewhere classified; D53.9 Nutritional anemia, unspecified; F31.9 Bipolar disorder, unspecified; I45.10 Unspecified right bundle-branch block; I51.7 Cardiomegaly; Z99.2 Dependence on renal dialysis; Z87.440 Personal history of urinary (tract) infections
CPT/HCPCS: 36415; 71045-TC; 80048-TC; 80076-TC; 83690-TC; 85025-TC